=== PATIENT | female | born 1940 | race Caucasian/White ===

== ENCOUNTER 2016-09-23 12:16 | Observation (INO) ==
[2016-09-23] MEDS ORDERED: IOPAMIDOL 100 ML BOTTLE IJ ONE (12:17)
[2016-09-23] MEDS ORDERED: ONDANSETRON 4 MG/2 ML VIAL IV ONE (12:46)
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
[2016-09-23] MEDS: HYDROmorphone 2 MG/ML SYRINGE IV PRN ×4 (13:08→21:11)
[2016-09-23] MEDS: 0.9 % SODIUM CHLORIDE 1,000 ML IV SCH ×2 (13:08→18:56)
--- NOTE | 2016-09-23 13:38 | Cat Scan Report ---
History: Increasing weakness following trauma Findings: There is no intracranial hemorrhage or cerebral edema. 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 This is unchanged since 06/21/15. No recent infarct has developed. There is a 4 mm calcification in the white matter in the left cerebellar hemisphere. This is a chronic finding of undetermined etiology. There also a physiologic calcifications in the basal ganglia bilaterally and choroid plexus. There is mild generalized cerebral atrophy. The ventricles are prominent but proportionate to the atrophy. Densely calcified plaques are present in the carotid arteries and left vertebral.. Bone windows show no skull fracture. There is mucosal thickening along the [place] of several anterior ethmoid air cells bilaterally. There has been no change since 11/23/15. Impression: No acute abnormality and no change since 11/23/15. Small old infarct at the left parietal-occipital boundary Dr. Small was called with results Interpreted and Authenticated by: Erwin Das 09/23/16
[2016-09-23 13:42] LABS: Basophils # (Auto) 0 K/mcL (0.0-0.3); Basophils % (Auto) 0 % (0.0-2.0); Eosinophils # (Auto) 0 K/mcL (0.0-0.7); Eosinophils % (Auto) 0.3 % (0.0-7.0); Granulocytes % (Auto) 87.6 % (38.0-78.0); Lymphocytes # (Auto) 0.5 K/mcL (1.5-4.8); Lymphocytes % (Auto) 5.9 % (15.5-49.0); Mean Cell Volume 93.9 fL (80.0-100.0); Mean Corpuscular HGB Conc 33.2 g/dL (31.0-36.0); Mean Corpuscular Hemoglobin 31.2 pg (26.0-34.0); Monocytes # (Auto) 0.6 K/mcL (0.1-0.9); Monocytes % (Auto) 6.2 % (1.0-9.0); Platelet Count 294 K/mcL (140-440); RBC 4.83 M/mcL (4.00-5.20); Red Cell Distribution Width 15.1 % (11.5-14.5)
[2016-09-23 14:04] LABS: ALT/SGPT 20 U/l (0-40); Albumin 4.3 gm/dL (3.2-5.2); Albumin/Globulin Ratio 1.6 (1.0-2.3); Alkaline Phosphatase 54 U/L (39-117); Blood Urea Nitrogen 14 mg/dl (8-23)
[2016-09-23 14:17] LABS: Appearance,Urine CLEAR; Bilirubin,Urine NEG (NEG); Color,Urine YELLOW; Glucose,Urine (UA) NEGATIVE (NEG); Leukocyte Esterase,Urine NEG /uL (NEG); Nitrate,Urine NEG (NEG); Protein,Urine NEG (NEG); Specific Gravity,Urine 1.019 (1.000-1.035); Urine Blood NEG mg/dL (<0.03); Urobilinogen,Urine NEG (NEG)
--- NOTE | 2016-09-23 16:01 | XRay Report ---
HISTORY: Reason for Exam:confused FINDINGS: Prominent increased interstitial lung markings are present bilaterally. Much of this is pulmonary fibrosis. However, there is a mild alveolar infiltrate developing in the left lower lobe, behind the left heart border. This is new since 07/20/16. No pleural effusion is present. The lungs are hyperinflated. The heart size is normal. Spine has a kyphotic curvature. IMPRESSION: COPD with superimposed mild left lower lobe pneumonia Interpreted and Authenticated by: Erwin Das 09/23/16
[2016-09-23] MEDS ORDERED: ONDANSETRON 4 MG/2 ML VIAL ONE (16:30)
[2016-09-23] MEDS ORDERED: ONDANSETRON ODT 4 MG TABLET SL ONE (18:47)
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
[2016-09-23 21:51] LABS: C-Reactive Protein 6.2 mg/dl (0.0-0.8)
[2016-09-23] MEDS ORDERED: HYDROmorphone 2 MG/ML SYRINGE IV PRN (22:23)
[2016-09-23] MEDS ORDERED: ALPRAZolam 0.5 MG TABLET PO PRN (22:23)
[2016-09-23] MEDS ORDERED: NALOXONE HCL 0.4 MG/ML VIAL IV PRN (22:23)
[2016-09-23] MEDS ORDERED: cefTRIAXone 1 GM in DEXTROSE 5% IN WATER 50 ML IV SCH (22:23)
[2016-09-23] MEDS ORDERED: BISACODYL 5 MG TABLET PO PRN (22:23)
[2016-09-23] MEDS ORDERED: ONDANSETRON 4 MG/2 ML VIAL IV PRN (22:23)
[2016-09-23] MEDS ORDERED: PROMETHAZINE 25 MG TABLET PO PRN (22:23)
[2016-09-23] MEDS ORDERED: AZITHROMYCIN 500 MG in DEXTROSE 5% IN WATER 250 ML IV SCH (22:23)
[2016-09-23] MEDS ORDERED: MAGNESIUM HYDROXIDE 30 ML ORAL.SUSP PO PRN (22:23)
[2016-09-23] MEDS ORDERED: 0.9 % SODIUM CHLORIDE 1,000 ML IV SCH ×2 (22:23)
[2016-09-23] MEDS ORDERED: morphine 15 MG TAB.SR.12H PO PRN (22:23)
[2016-09-23] MEDS ORDERED: GABAPENTIN 300 MG CAPSULE PO SCH (22:23)
[2016-09-23] MEDS ORDERED: ACETAMINOPHEN 325 MG TABLET PO PRN (22:23)
[2016-09-23] MEDS ORDERED: IPRATROPIUM/ALBUTEROL 3 ML AMPUL.NEB NEB ONE (22:42)
[2016-09-23] MEDS: IPRATROPIUM/ALBUTEROL 3 ML AMPUL.NEB NEB SCH (22:58)
[2016-09-24] MEDS: predniSONE 20 MG TABLET PO SCH ×2 (02:08→09:13)
[2016-09-24] MEDS: FAMOTIDINE/PF 20 MG/2 ML VIAL IV SCH ×3 (02:08→19:57)
[2016-09-24 02:09] LABS: ABG Methemoglobin 0.3 % (0.4-1.5); VBG Base Excess 0.4 (-2.0-2.0); VBG HCO3 24.5 mmol/L (24.0-28.0); VBG Oxygen Saturation 92.5 % (40.0-70.0); VBG PCO2 37.8 mmHg (41.0-51.0); VBG PH 7.43 U (7.32-7.42); VBG PO2 124 mmHg (25-40); VBG Total CO2 25.7 mmol/L (25.0-29.0)
[2016-09-24] MEDS ORDERED: predniSONE 20 MG TABLET ONE (02:14)
[2016-09-24] MEDS ORDERED: cefTRIAXone 1 GM VIAL ONE (02:14)
[2016-09-24] MEDS ORDERED: AZITHROMYCIN 500 MG VIAL IV ONE (02:14)
[2016-09-24] MEDS ORDERED: FAMOTIDINE/PF 20 MG/2 ML VIAL IV ONE (02:15)
[2016-09-24 02:17] LABS: Basophils # (Auto) 0 K/mcL (0.0-0.3); Basophils % (Auto) 0.2 % (0.0-2.0); Eosinophils # (Auto) 0.1 K/mcL (0.0-0.7); Granulocytes % (Auto) 70.5 % (38.0-78.0); Lymphocytes # (Auto) 0.9 K/mcL (1.5-4.8); Lymphocytes % (Auto) 16.2 % (15.5-49.0); Mean Cell Volume 94.6 fL (80.0-100.0); Mean Corpuscular HGB Conc 32.9 g/dL (31.0-36.0); Mean Corpuscular Hemoglobin 31.2 pg (26.0-34.0); Monocytes # (Auto) 0.6 K/mcL (0.1-0.9); Monocytes % (Auto) 11.1 % (1.0-9.0); Platelet Count 241 K/mcL (140-440); RBC 4.34 M/mcL (4.00-5.20); Red Cell Distribution Width 15.1 % (11.5-14.5)
[2016-09-24] MEDS ORDERED: GABAPENTIN 300 MG CAPSULE ONE (02:17)
[2016-09-24 02:40] LABS: ALT/SGPT 15 U/l (0-40); Albumin 3.5 gm/dL (3.2-5.2); Albumin/Globulin Ratio 1.7 (1.0-2.3); Alkaline Phosphatase 43 U/L (39-117); Bilirubin,Direct < 0.2 mg/dL (0.0-0.3); Blood Urea Nitrogen 11 mg/dl (8-23); Gamma Glutamyl Transpeptidase 11 U/L (5-36); Magnesium 2.2 mg/dL (1.6-2.5); Phosphorous 2.5 mg/dL (2.7-4.5); Uric Acid 4.5 mg/dL (2.5-8.0)
[2016-09-24] MEDS: 0.9 % SODIUM CHLORIDE 1,000 ML IV SCH ×5 (02:41→14:45)
[2016-09-24] MEDS ORDERED: HYDROmorphone 2 MG/ML SYRINGE ONE (03:02)
[2016-09-24] MEDS: IPRATROPIUM/ALBUTEROL 3 ML AMPUL.NEB NEB SCH ×6 (03:16→23:34)
[2016-09-24] MEDS ORDERED: IPRATROPIUM/ALBUTEROL 3 ML AMPUL.NEB NEB ONE (03:28)
[2016-09-24] MEDS ORDERED: LEVOTHYROXINE 50 MCG TABLET PO SCH (07:30)
[2016-09-24 08:08] LABS: Amphetamine Screen,Urine NONE DETECTED (NONDETECTED); Benzodiazepines Screen,Urine NONE DETECTED (NONDETECTED); Cocaine Screen,Urine NONE DETECTED (NONDETECTED); Opiate Screen,Urine SUSPECT POSITIVE (NONDETECTED)
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
[2016-09-24] MEDS ORDERED: CLOPIDOGREL 75 MG TABLET PO SCH (09:00)
[2016-09-24] MEDS ORDERED: amLODIPine 5 MG TABLET PO SCH (09:00)
[2016-09-24] MEDS ORDERED: ISOSORBIDE MONONITRATE 30 MG TAB.XL.24H PO SCH (09:00)
[2016-09-24] MEDS ORDERED: HYDROCHLOROTHIAZIDE 12.5 MG CAPSULE PO SCH (09:00)
[2016-09-24] MEDS: GABAPENTIN 300 MG CAPSULE PO SCH ×3 (09:28→14:51)
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
[2016-09-24] MEDS ORDERED: WARFARIN 7.5 MG TABLET PO ONE ×3 (14:00→15:00)
[2016-09-24] MEDS ORDERED: MAGNESIUM HYDROXIDE 30 ML ORAL.SUSP PO PRN (14:32)
[2016-09-24] MEDS ORDERED: BISACODYL 5 MG TABLET PO PRN (14:32)
[2016-09-24] MEDS ORDERED: ONDANSETRON 4 MG/2 ML VIAL IV PRN (14:32)
[2016-09-24] MEDS ORDERED: PROMETHAZINE 25 MG TABLET PO PRN (14:32)
[2016-09-24] MEDS ORDERED: ACETAMINOPHEN 325 MG TABLET PO PRN (14:32)
[2016-09-24] MEDS ORDERED: NALOXONE HCL 0.4 MG/ML VIAL IV PRN (14:32)
[2016-09-24] MEDS ORDERED: HYDROmorphone 2 MG/ML SYRINGE IV PRN (14:32)
[2016-09-24] MEDS ORDERED: cefTRIAXone 1 GM in DEXTROSE 5% IN WATER 50 ML IV SCH (17:00)
[2016-09-24] MEDS: cefTRIAXone 1 GM in DEXTROSE 5% IN WATER 50 ML IV SCH (17:31)
[2016-09-24] MEDS ORDERED: AZITHROMYCIN 500 MG in DEXTROSE 5% IN WATER 250 ML IV SCH (18:00)
[2016-09-24] MEDS: AZITHROMYCIN 500 MG in DEXTROSE 5% IN WATER 250 ML IV SCH (18:04)
[2016-09-24] MEDS ORDERED: ALPRAZolam 0.5 MG TABLET PO PRN (21:00)
[2016-09-24] MEDS ORDERED: morphine 15 MG TAB.SR.12H PO PRN (21:00)
[2016-09-24] MEDS ORDERED: GABAPENTIN 300 MG CAPSULE PO SCH (21:00)
[2016-09-25] MEDS: 0.9 % SODIUM CHLORIDE 1,000 ML IV SCH ×2 (02:47→13:23)
[2016-09-25] MEDS: IPRATROPIUM/ALBUTEROL 3 ML AMPUL.NEB NEB SCH ×3 (04:41→11:00)
[2016-09-25] MEDS ORDERED: LEVOTHYROXINE 50 MCG TABLET PO SCH (07:30)
[2016-09-25] MEDS ORDERED: predniSONE 20 MG TABLET PO SCH (08:00)
[2016-09-25] MEDS ORDERED: HYDROCHLOROTHIAZIDE 12.5 MG CAPSULE PO SCH (09:00)
[2016-09-25] MEDS ORDERED: ISOSORBIDE MONONITRATE 30 MG TAB.XL.24H PO SCH (09:00)
[2016-09-25] MEDS ORDERED: amLODIPine 5 MG TABLET PO SCH (09:00)
[2016-09-25] MEDS ORDERED: CLOPIDOGREL 75 MG TABLET PO SCH (09:00)
[2016-09-25] MEDS: GABAPENTIN 300 MG CAPSULE PO SCH ×2 (09:30→13:27)
[2016-09-25] MEDS: FAMOTIDINE/PF 20 MG/2 ML VIAL IV SCH (09:30)
[2016-09-25] MEDS: cefTRIAXone 1 GM in DEXTROSE 5% IN WATER 50 ML IV SCH (09:32)
[2016-09-25] MEDS: AZITHROMYCIN 500 MG in DEXTROSE 5% IN WATER 250 ML IV SCH (10:17)
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
[2016-09-25] MEDS ORDERED: WARFARIN 7.5 MG TABLET PO SCH (14:00)
== END 2016-09-25 12:05 | disposition home health service (06) ==
LOC: ICU 12:16 → ED 12:16 → ICU 22:21 → MEDSUR 09-24 14:14
PROVIDERS: ADMIT Internal Medicine; ATTEND Internal Medicine

== ENCOUNTER 2018-07-17 15:57 | Inpatient (IN) ==
[2018-07-17] MEDS ORDERED: ONDANSETRON 4 MG/2 ML VIAL IV ONE (16:38)
--- NOTE | 2018-07-17 17:06 | Emergency Department Note ---
Weakness HPI - General Chief complaint: Weakness Stated complaint: diarrhea, abdominal pain, weakness Time Seen by Provider: 07/17/18 16:39 Source: patient, family Mode of arrival: wheelchair Limitations: no limitations - History of Present Illness HPI Narrative: Patient states that she has been having nausea yesterday with one episode of vomiting. Also had 2 episodes of diarrhea since then. There is been no blood in the stool. She is been feeling nauseated but there is been no abdominal pain or cramping. No hematemesis no melena. Denies any urgency frequency or dysuria. He does have a history of COPD she states that she has been having some wheezing at home with some cough although she is not wheezing at this time. She does have an inhaler that she uses. He had smoked approximately 27 years ago but has quit patient has been afebrile vital signs Temperature is 97.7 the pulse is 113 respiratory rate 20 pressure 86/56 pulse ox is 93. However in triage she did not get a blood pressure in the armthe patient refused because of the pain they normally take it down more by the wrist. We did repeat the blood pressure and it was 156/77 and was not 86/56. Patient has been more weak than normal having use a walker when she normally does not. Daughter states also that she was unable to get out of the chair because of the weakness today. - Related Data Home Medications Medication Instructions Recorded Confirmed cholecalciferol (vitamin D3) 1,000 1,000 unit PO QDAY 02/07/16 03/23/18 unit capsule magnesium 200 mg tablet 400 mg PO QDAY 02/07/16 03/23/18 omega-3 fatty acids 500 mg capsule 2,000 mg PO QDAY 02/07/16 03/23/18 vitamin B complex tablet 1 tab-cap PO QDAY 02/07/16 03/23/18 Albuterol Sulfate [Proventil Hfa] 2 puff INHALATION Q4-6HP PRN 12/10/17 03/23/18 Atorvastatin [Lipitor] 40 mg PO HS 12/10/17 03/23/18 DULoxetine HCL [Irenka] 40 mg PO QDAY 12/10/17 03/23/18 Levothyroxine Sodium [Levoxyl] 50 mcg PO QAMAC 12/10/17 03/23/18 Warfarin [Coumadin] 7.5 mg PO MOTUWETHFRSA 12/10/17 03/23/18 Hydrocodone/APAP 7.5/325Mg [Severn 1 - 2 tab PO Q4HP PRN 12/12/17 03/23/18 7.5-325Mg] Ipratropium/Albuterol [Duoneb] 3 ml INHALATION BID 12/12/17 03/23/18 Previous Rx's Medication Instructions Recorded amlodipine 5 mg tablet 5 mg PO QDAY #90 tab 08/11/17 budesonide 0.5 mg/2 mL suspension 0.5 mg INHALATION Q12H #270 ml 03/23/18 for nebulization ipratropium-albuterol 0.5 mg-3 3 ml INHALATION TID #270 ml 03/23/18 mg(2.5 mg base)/3 mL nebulization soln Allergies Allergy/AdvReac Type Severity Reaction Status Date / Time No Known Drug Allergies Allergy Verified 07/17/18 16:00 Review of Systems All systems ED: reviewed and negative except as stated. Respiratory: Reports: cough Gastrointestinal: Reports: nausea, vomiting, diarrhea Genitourinary: Reports: as per HPI. Denies: dysuria, urgency, frequency Past Medical History - Past Medical History [facility] Narrative: Family History (Last Reviewed 03/23/18 @ 10:30 by Bryon Vargas MD) Brother Family history of malignant neoplasm Mother Family history of malignant neoplasm Heart failure Sister Family history of malignant neoplasm Father Cardiac disease Medical history: Reports: COPD, coronary artery disease, hyperlipidemia, hypertension, hypothyroidism, myocardial infarction (2.), osteoporosis, pulmonary embolus, other (Chronic narcotics. 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 Denies: CVA, DM Psychiatric history: Reports: depression (History but not currently.). Denies: anxiety (Denies but previously had ensure that there was a positive.) Surgical history ED: Reports: angioplasty/stent (Single vessel coronary.), cataract (Bilateral), cholecystectomy, hysterectomy, other (cardiac stent) - Social History smoking status: Former smoker Alcohol use: Reports: None Drug use: Reports: none Physical Exam Limitations: no limitations General appearance: alert Head: atraumatic Eye: Present: normal appearance ENT: normal exam, normal oropharynx Neck: Present: normal inspection, full ROM Chest: Present: normal inspection. Absent: symmetric chest wall rise, tenderness Respiratory: Present: wheezes Cardiovascular: Present: regular rate, normal rhythm Abdominal: Present: soft, normal bowel sounds. Absent: distention, guarding, rebound, rigidity Extremities: Present: normal inspection, full ROM, tenderness Back: Present: normal inspection, full ROM. Absent: tenderness Neurological: Present: alert, oriented X3, CN II-XII intact Psychiatric: Present: normal affect, normal mood Skin: Present: warm, dry Course Vital Signs Temperature 97.7 F 07/17/18 15:58 Pulse Rate 113 H 07/17/18 15:58 Respiratory Rate 20 07/17/18 15:58 Blood Pressure 86/56 07/17/18 15:58 Pulse Oximetry (%) 93 07/17/18 15:58 Temperature 97.7 F 07/17/18 15:58 Pulse Rate 107 H 07/17/18 19:28 Respiratory Rate 22 07/17/18 19:28 Blood Pressure 135/119 07/17/18 19:16 Pulse Oximetry (%) 97 07/17/18 19:16 Weakness - MDM Narrative Medical decision making narrative: Sodium is 133 the potassium 3.8 the BUN is 14 creatinine 1.0 lactic acid is 0.6 WBC 7200 with a hemoglobin of 12.3 hematocrit 37.0 blood cultures have been drawn test was negative patient had been started on Rocephin per Dr. Norris contacted and patient to be admitted - Lab Data Result diagrams: 07/17/18 17:00 07/17/18 17:00 Lab Results 07/17/18 07/17/18 07/17/18 Range/Units 17:00 17:00 18:45 WBC 7.2 (4.5-11.0) K/mcL RBC 3.98 L (4.00-5.20) M/mcL Hgb 12.3 (12.0-15.0) g/dL Hct 37.0 (36.0-48.0) % MCV 93.0 (80.0-100.0) fL MCH 31.0 (26.0-34.0) pg MCHC 33.4 (31.0-36.0) g/dL RDW 15.7 H (11.5-14.5) % Plt Count 228 (140-440) K/mcL MPV 7.8 (7.4-10.4) fL Gran % 82.8 H (38.0-78.0) % Lymph % (Auto) 7.0 L (15.5-49.0) % [place]cer % (Auto) 9.7 (1.0-12.0) % Eos % (Auto) 0.4 (0.0-7.0) % Baso % (Auto) 0.1 (0.0-2.0) % Gran # 5.9 (1.8-8.0) K/mcL Lymph # (Auto) 0.5 L (1.5-4.8) K/mcL [place] # (Auto) 0.7 (0.1-0.9) K/mcL Eos # (Auto) 0 (0.0-0.7) K/mcL Baso # (Auto) 0 (0.0-0.3) K/mcL VBG Lactic Acid 0.6 (0.5-2.0) mmol/L Sodium 133 (133-145) mmol/L Potassium 3.8 (3.3-5.1) mmol/L Chloride 96 (96-108) mmol/L Carbon Dioxide 22 (22-30) mmol/L Anion Gap 15.0 (8-16) BUN 14 (8-23) mg/dl Creatinine 1.0 (0.6-1.1) mg/dl GFR Calculation 54 Glucose 96 (70-105) mg/dL Calcium 8.8 (8.6-10.4) mg/dl Total Bilirubin 0.5 (0.0-1.0) mg/dL AST 13 (0-37) U/l ALT 20 (0-40) U/l Alkaline Phosphatase 69 (39-117) U/L Total Protein 6.4 (5.9-8.4) gm/dL Albumin 3.8 (3.2-5.2) gm/dL Globulin 2.6 (2.2-3.7) gm/dL Albumin/Globulin Ratio 1.5 (1.0-2.3) Disposition Pt seen by PULPER TENDER/PA only: No Disposition: Xfer As Inpt ([facility]) Condition: Fair Referrals: Maritza Arredondo MD [Primary Care Provider] -
[2018-07-17] MEDS ORDERED: 0.9 % SODIUM CHLORIDE 1,000 ML IV ONE (17:11)
--- NOTE | 2018-07-17 17:48 | XRay Report ---
CLINICAL INFORMATION: hx of copd, cough COMPARISON: 09/23/2016 FINDINGS: Moderate cardiomegaly is unchanged. Mediastinum and pulmonary vessels are normal. COPD changes again noted. Small infiltrate is developed in the right infrahilar region. No effusion IMPRESSION: Small right infrahilar infiltrate. Underlying COPD Mild stable cardiomegaly Interpreted and Authenticated by: Andrew Leo 07/17/18
[2018-07-17 17:55] LABS: Basophils # (Auto) 0 K/mcL (0.0-0.3); Basophils % (Auto) 0.1 % (0.0-2.0); Eosinophils # (Auto) 0 K/mcL (0.0-0.7); Eosinophils % (Auto) 0.4 % (0.0-7.0); Granulocytes % (Auto) 82.8 % (38.0-78.0); Lymphocytes # (Auto) 0.5 K/mcL (1.5-4.8); Mean Corpuscular HGB Conc 33.4 g/dL (31.0-36.0); Monocytes # (Auto) 0.7 K/mcL (0.1-0.9); Monocytes % (Auto) 9.7 % (1.0-12.0); Platelet Count 228 K/mcL (140-440); RBC 3.98 M/mcL (4.00-5.20); Red Cell Distribution Width 15.7 % (11.5-14.5)
[2018-07-17 18:11] LABS: ALT/SGPT 20 U/l (0-40); Albumin 3.8 gm/dL (3.2-5.2); Albumin/Globulin Ratio 1.5 (1.0-2.3); Alkaline Phosphatase 69 U/L (39-117); Blood Urea Nitrogen 14 mg/dl (8-23)
[2018-07-17] MEDS ORDERED: cefTRIAXone 1 GM VIAL IV ONE (18:33)
[2018-07-17] MEDS ORDERED: IPRATROPIUM/ALBUTEROL 3 ML AMPUL.NEB NEB ONE (19:18)
[2018-07-17] MEDS ORDERED: AZITHROMYCIN 250 MG TABLET PO ONE ×2 (20:07→20:58)
[2018-07-17] MEDS ORDERED: HYDROmorphone 2 MG/ML VIAL IV PRN (20:58)
[2018-07-17] MEDS ORDERED: ONDANSETRON 4 MG/2 ML VIAL IV PRN (20:58)
[2018-07-17] MEDS ORDERED: predniSONE 20 MG TABLET PO ONE (20:58)
[2018-07-17] MEDS ORDERED: FLEETS ADULT ENEMA PR PRN (20:58)
[2018-07-17] MEDS ORDERED: ALBUTEROL SULFATE 2.5 MG/3 ML NEBULIZER NEB PRN (20:58)
[2018-07-17] MEDS ORDERED: oxyCODONE HCL 5 MG TABLET PO PRN (20:58)
--- NOTE | 2018-07-17 21:41 | Internal Med History&Physical ---
Medical - H&P: HPI Patient information: Note initiated : 07/17/18 at 9:35 pm Service Date, if different from initiated Date: [] Patient: Angy Meier a 78 y/o F admitted on 07/17/18 for diarrhea, abdominal pain, weakness. Chief Complaint: [] History of present illness: Ms. Meier is a 78 year old F with multiple medical issues presents to the ER today with complaints of weakness/cough / nausea/diarrhea x 3 days. The patient notes her symptoms started 3 days ago, she had cough with yellow sputum. Cough was associated with shortness of breath worse with activity better with rest. She also had some wheezing for which she has been taking her nebulizer treatments. Patient had subjective sensation of chills but no fever. The patient also reports symptoms started with nausea no vomiting and a few episodes of diarrhea. Patient initially felt that the symptoms were related to a viral illness and they were resolved by themselves. However her symptoms progressed and she was too weak even to get out of chair and walk short distances in her house. She therefore decided to come to the emergency room for further evaluation. The patient denies any headache changes in vision difficulty in swallowing runny nose, denies any chest pain palpitations , has some abdominal soreness, no urinary complaints, no joint pains back pain skin rashes denies depression or anxiety. Denies any blood in the stools or black stools. The patient has a history of atrial fibrillation she is on Coumadin. The patient also has history of COPD and uses nebulizers at home In the emergency room on presentation patient was afebrile, hemodynamically stable. Saturating more than 90% on room air. Labs showed normal WBC count, hemoglobin of 12, INR 3.0, lactic acid of 0.6 and an unremarkable chemistry. Chest x-ray shows a right-sided infrahilar infiltrate. Although the ED provider did not mention about any wheezing on my exam I did notice the patient did have active wheezing. Given the patient's age multiple comorbidities pneumonia and significant weakness with ambulation. We are admitting the patient to the hospital for further management All systems: reviewed and no additional remarkable complaints except as stated ( as per HPI rest negative) Medical - H&P: PMH Medical history: Medical History (Last Reviewed 03/23/18 @ 10:30 by Bryon Vargas MD) Mental status change (Acute) Atrial fibrillation with normal ventricular rate (Chronic) Encounter for wound care (Acute) Acute exacerbation of chronic obstructive airways disease (Acute) Chest pain at rest (Chronic) Myocardial infarction (Chronic) CAD in [place] artery (Chronic) Pulmonary embolism (Chronic) Chronic bronchitis with COPD (chronic obstructive pulmonary disease) (Chronic) Pneumonia (Acute) Community acquired pneumonia (Acute) F/u for acute coronary syndrome (Acute) Failed back syndrome (Chronic) Lumbar radiculopathy (Chronic) Abrasion (Acute) Urinary tract infection (Acute) Chronic SI joint pain (Chronic) Low back pain (Chronic) Minor head injury (Acute) Laceration (Acute) Visit for suture removal (Acute) Skin infection of right knee (Acute) Left leg pain (Acute) Anticoagulated on Coumadin (Acute) Bursitis of left hip (Acute) Open wound of right lower extremity (Chronic) Avulsion of skin (Chronic) Contusion (Chronic) Wound infection (Chronic) Contusion of lower leg (Chronic) History of uterine prolapse (Chronic) Venous insufficiency (Chronic) Hx of venous thrombosis and embolism (Chronic) Radiculopathy, lumbosacral or thoracic (Chronic) Hx pulmonary embolism (Chronic) Osteoporosis (Chronic) meterman current use of anticoagulant (Chronic) Insomnia (Chronic) Hypothyroidism, acquired (Chronic) Hypertension (Chronic) Hyperlipidemia (Chronic) Hammer toe, acquired (Chronic) Gastritis and gastroduodenitis (Chronic) Gastric ulcer (Chronic) Chronic back pain (Chronic) COPD (chronic obstructive pulmonary disease) (Chronic) Bowel obstruction (Chronic) Back pain (Chronic) Anxiety disorder (Chronic) Anemia (Chronic) History of coronary angiogram (Chronic 01/17/16) Surgical history: Past Surgical History (Last Reviewed 03/23/18 @ 10:30 by Bryon Vargas MD) History of skin graft (Chronic) History of reduction mammoplasty (Chronic) History of hysterectomy (Chronic) History of hammer toe correction (Chronic) History of esophagogastroduodenoscopy (Chronic) History of cholecystectomy (Chronic) History of foot surgery (Chronic) History of intestinal surgery (Chronic) History of back surgery (Chronic) History of arthroplasty (Chronic) Pertinent family history: Family History (Last Reviewed 03/23/18 @ 10:30 by Bryon Vargas MD) Brother Family history of malignant neoplasm Mother Family history of malignant neoplasm Heart failure Sister Family history of malignant neoplasm Father Cardiac disease Medical - H&P: Meds Home Medications Medication Instructions Recorded Confirmed Type cholecalciferol (vitamin D3) 1,000 1,000 unit PO QDAY 02/07/16 07/17/18 History unit capsule omega-3 fatty acids 500 mg capsule 2,000 mg PO QDAY 02/07/16 07/17/18 History vitamin B complex tablet 1 tab-cap PO QDAY 02/07/16 07/17/18 History amlodipine 5 mg tablet 5 mg PO QDAY #90 tab 08/11/17 07/17/18 Rx Albuterol Sulfate [Proventil Hfa] 2 puff INHALATION Q4-6HP PRN 12/10/17 History Atorvastatin [Lipitor] 40 mg PO HS 12/10/17 07/17/18 History DULoxetine HCL [Irenka] 40 mg PO QDAY 12/10/17 07/17/18 History Levothyroxine Sodium [Levoxyl] 50 mcg PO QAMAC 12/10/17 07/17/18 History Warfarin [Coumadin] 7.5 mg PO [id number] 12/10/17 07/17/18 History Ipratropium/Albuterol [Duoneb] 3 ml INHALATION BID 12/12/17 07/17/18 History budesonide 0.5 mg/2 mL suspension 0.5 mg INHALATION Q12H #270 ml 03/23/18 Rx for nebulization ipratropium-albuterol 0.5 mg-3 3 ml INHALATION TID #270 ml 03/23/18 07/17/18 Rx mg(2.5 mg base)/3 mL nebulization soln Allergies Allergy/AdvReac Type Severity Reaction Status Date / Time No Known Drug Allergies Allergy Verified 07/17/18 16:00 Medical - H&P: Exam - Constitutional Vitals: Temp Pulse Resp BP Pulse Ox 98.8 F 95 H 20 124/66 94 07/17/18 20:57 07/17/18 21:08 07/17/18 21:08 07/17/18 21:08 07/17/18 21:08 Exam: GENERAL: The patient is a well-developed, well-nourished in no apparent distress. Is alert and oriented x3. VITAL SIGNS: Reviewed and as noted elsewhere. HEENT: Head is normocephalic and atraumatic. Extraocular muscles are intact. Pupils are equal, round, and reactive to light. Nares appeared normal. Mouth appears any without lesions. Mucous membranes are dry. NECK: Normal to inspection, Supple, No lymphadenopathy or thyromegaly. LUNGS: Air entry equal on both sides, tori exp wheezing, prolonged exp phase. HEART: Regular rate and rhythm irregular , S1 and S2 heard, no Gallop, S3 or Rub Noted. Systolic murmur 3/6 ABDOMEN: Soft, nontender, and nondistended. Positive bowel sounds. No hepatosplenomegaly was noted. EXTREMITIES: No cyanosis, clubbing, rash, lesions or edema. NEUROLOGIC: Cranial nerves II through XII are grossly intact. Motor and Sensory System Grossly Intact PSYCHIATRIC: Normal affect, Normal Mood. Appropriate Behavior. SKIN: No ulceration or wounds noted, No jaundice, No rash noted. Medical - H&P: Reslt - Labs CBC & Chem 7: 07/17/18 17:00 07/17/18 17:00 Labs: Short CBC 07/17/18 Range/Units 17:00 WBC 7.2 (4.5-11.0) K/mcL Hgb 12.3 (12.0-15.0) g/dL Hct 37.0 (36.0-48.0) % Plt Count 228 (140-440) K/mcL BMP 07/17/18 17:00 Sodium 133 Potassium 3.8 Chloride 96 Carbon Dioxide 22 BUN 14 Creatinine 1.0 Glucose 96 Calcium 8.8 Liver Function 07/17/18 Range/Units 17:00 Total Bilirubin 0.5 (0.0-1.0) mg/dL AST 13 (0-37) U/l ALT 20 (0-40) U/l Alkaline Phosphatase 69 (39-117) U/L Albumin 3.8 (3.2-5.2) gm/dL Medical - H&P: A/P - Narrative A/P Narrative: A/P Community Acquired Pneumonia- IV Rocephin and zithromax for now, Check respiratory viral PCR Acute COPD exacerbation- PO steroids, Duonebs q4h, budesonide nebs, not needing oxygen at this time. Nausea- Symptomatic management Diarrhea- Few episodes of loose stools, if recurs, consider checking for Cdiff Atrial fibrillation- Rate controlled, pt on coumadin, last INR is 3.0 continue same CAD/HTN/HLD- Stable, continue home medications. Dehydration- Patient appears dry clinicall, IV fluids for now. Hypothyroidism- stable, continue home dose of levothyroxine. DVT on coumadin with therapeutic INR. DNR code status Regular diet Social History - Social History marital status: occupational status: retired - Tobacco smoking status: Former smoker - Alcohol alcohol intake frequency: does not drink - Substance use substance use type: marijuana - Additional Social History additional history: Drinks liquid marijuana to help with pain. Gets from a private libertarian.
[2018-07-17] MEDS ORDERED: LACTATED RINGERS 1,000 ML IV SCH (22:00)
[2018-07-17] MEDS: BUDESONIDE 0.5 MG/2 ML AMPUL.NEB NEB SCH (22:12)
[2018-07-17] MEDS: IPRATROPIUM/ALBUTEROL 3 ML AMPUL.NEB NEB SCH (22:12)
[2018-07-17] MEDS: 0.9 % SODIUM CHLORIDE 10 ML SYRINGE IV SCH (22:57)
[2018-07-18] MEDS ORDERED: IPRATROPIUM/ALBUTEROL 3 ML AMPUL.NEB NEB SCH (01:00)
[2018-07-18] MEDS: ACETAMINOPHEN 325 MG TABLET PO PRN (01:08)
[2018-07-18] MEDS: IPRATROPIUM/ALBUTEROL 3 ML AMPUL.NEB NEB SCH ×6 (03:41→23:02)
[2018-07-18 05:25] LABS: Basophils # (Auto) 0 K/mcL (0.0-0.3); Basophils % (Auto) 0.1 % (0.0-2.0); Eosinophils # (Auto) 0 K/mcL (0.0-0.7); Eosinophils % (Auto) 0.1 % (0.0-7.0); Granulocytes % (Auto) 89.7 % (38.0-78.0); Lymphocytes # (Auto) 0.5 K/mcL (1.5-4.8); Lymphocytes % (Auto) 7.6 % (15.5-49.0); Mean Cell Volume 93.4 fL (80.0-100.0); Mean Corpuscular HGB Conc 33.3 g/dL (31.0-36.0); Mean Corpuscular Hemoglobin 31.1 pg (26.0-34.0); Monocytes # (Auto) 0.2 K/mcL (0.1-0.9); Monocytes % (Auto) 2.5 % (1.0-12.0); Platelet Count 197 K/mcL (140-440); RBC 3.72 M/mcL (4.00-5.20); Red Cell Distribution Width 15.3 % (11.5-14.5)
[2018-07-18] MEDS: 0.9 % SODIUM CHLORIDE 10 ML SYRINGE IV SCH ×3 (05:30→20:25)
[2018-07-18 05:50] LABS: ALT/SGPT 16 U/l (0-40); Albumin 3.1 gm/dL (3.2-5.2); Albumin/Globulin Ratio 1.2 (1.0-2.3); Alkaline Phosphatase 73 U/L (39-117); Bilirubin,Direct < 0.2 mg/dL (0.0-0.3); Blood Urea Nitrogen 13 mg/dl (8-23); Gamma Glutamyl Transpeptidase 14 U/L (5-36); Uric Acid 3.5 mg/dL (2.5-8.0)
[2018-07-18] MEDS ORDERED: IPRATROPIUM/ALBUTEROL 3 ML AMPUL.NEB NEB ONE (07:19)
[2018-07-18] MEDS: BUDESONIDE 0.5 MG/2 ML AMPUL.NEB NEB SCH ×3 (07:54→19:23)
[2018-07-18] MEDS: predniSONE 20 MG TABLET PO SCH (08:31)
[2018-07-18] MEDS: LEVOTHYROXINE 50 MCG TABLET PO SCH (08:31)
[2018-07-18] MEDS ORDERED: cefTRIAXone 1 GM in DEXTROSE 5% IN WATER 50 ML IV SCH (09:00)
[2018-07-18] MEDS: VITAMIN D3 1,000 UNIT TABLET PO SCH (09:54)
[2018-07-18] MEDS: amLODIPine 5 MG TABLET PO SCH (09:54)
[2018-07-18] MEDS: DULoxetine 20 MG CAPSULE PO SCH (10:54)
--- NOTE | 2018-07-18 13:06 | Internal Med Progress Note ---
Medical - PN: Subj Patient information: Note initiated : 07/18/18 at 1:04 pm Service Date, if different from initiated Date: [] Patient: Angy Meier a 78 y/o F admitted on 07/17/18 for diarrhea, abdominal pain, weakness. Chief Complaint: [] Interval history: Ms. Meier is a 78 year old F with multiple medical issues presents to the ER today with complaints of weakness/cough / nausea/diarrhea x 3 days. The patient notes her symptoms started 3 days ago, she had cough with yellow sputum. Cough was associated with shortness of breath worse with activity better with rest. She also had some wheezing for which she has been taking her nebulizer treatments. Patient had subjective sensation of chills but no fever. The patient also reports symptoms started with nausea no vomiting and a few episodes of diarrhea. Patient initially felt that the symptoms were related to a viral illness and they were resolved by themselves. However her symptoms progressed and she was too weak even to get out of chair and walk short distances in her house. She therefore decided to come to the emergency room for further evaluation. The patient denies any headache changes in vision difficulty in swallowing runny nose, denies any chest pain palpitations , has some abdominal soreness, no urinary complaints, no joint pains back pain skin rashes denies depression or anxiety. Denies any blood in the stools or black stools. The patient has a history of atrial fibrillation she is on Coumadin. The patient also has history of COPD and uses nebulizers at home In the emergency room on presentation patient was afebrile, hemodynamically stable. Saturating more than 90% on room air. Labs showed normal WBC count, hemoglobin of 12, INR 3.0, lactic acid of 0.6 and an unremarkable chemistry. Chest x-ray shows a right-sided infrahilar infiltrate. Although the ED provider did not mention about any wheezing on my exam I did notice the patient did have active wheezing. Given the patient's age multiple comorbidities pneumonia and significant weakness with ambulation. We are admitting the patient to the hospital for further management 07/18 Patient seen and examined, still has some cough, wanting cough medication otherwise was comfortably sitting in chair. She had breakfast without any issues. Pertinent ROS: Denies headache, dizziness Denies chest pain, palpitations Cough and shortness of breath present improved Denies abdominal pain, nausea or vomiting. - Constitutional Vitals: Vital Signs Temp Pulse Resp BP Pulse Ox 98.4 F 97 H 16 157/87 95 07/18/18 12:00 07/18/18 12:33 07/18/18 12:33 07/18/18 12:00 07/18/18 12:00 Period Temp Pulse Resp BP Sys/Ramirez Pulse Ox Last 24 Hr 97.5 F-99.6 F 83-113 16-30 86-166/56-141 91-97 Intake and Output 07/17/18 07/18/18 07/18/18 22:59 05:59 13:59 Intake Total Output Total 250 / 250 Balance -250 / -250 Weight Intake & Output: Intake & Output 07/17/18 07/18/18 07/18/18 22:59 05:59 13:59 Intake Total Output Total 250 / 250 Balance -250 / -250 Weight Intake: IV Sodium Chloride 0.9% 1,000 ml @ Wide Open IV BOLUS ONE Rx#: [id number] Lactated Ringers 1,000 ml @ 125 mls/hr IV .Q8H [facility] Rx#: [id number] Oral Output: Void Amount 250 / 250 # of times incontinent of urine 0 / 0 Other: Urine Appearance Clear Urine Color Bright Yellow Urine Odor Normal # Voids 1 Exam: Constitutional; Afebrile, cooperative, alert, not in distress. Eyes- No icterus, , No periorbital swelling Ears- Ext ear normal, hearing normal to conversation. Neck- Midline trachea, supple Respiratory system: Air Entry equal on both sides, prolonged expiratory phase, bilateral expiratory wheezing CVS- Rate rhythm regular, S1,S2 heard, no gallop, no rub. Abdomen- Soft nontender abdomen, no organomegaly, no tenderness, no guarding or rigidity, ANESTHESIOLOGIST ATTENDING- AOOx3, moving all extremities, no gross focal deficit noted. Medical - PN: Obj Da - Labs CBC & Chem 7: 07/18/18 04:10 07/18/18 04:00 Labs: Abnormal Lab Results 07/18/18 07/18/18 07/18/18 04:10 04:10 04:00 RBC 3.72 L Hgb 11.6 L Hct 34.8 L RDW 15.3 H Gran % 89.7 H Lymph % (Auto) 7.6 L Lymph # (Auto) 0.5 L PT 31.9 H INR 3.0 H Carbon Dioxide 20 L Glucose 140 H Calcium 8.3 L Total Protein 5.7 L Albumin 3.1 L 07/17/18 07/17/18 17:00 17:00 RBC 3.98 L Hgb Hct RDW 15.7 H Gran % 82.8 H Lymph % (Auto) 7.0 L Lymph # (Auto) 0.5 L PT 31.3 H INR 3.0 H Carbon Dioxide Glucose Calcium Total Protein Albumin Meds: Medications Acetaminophen (Tylenol) 650 mg PO Q6HP PRN PRN Reason: PAIN/FEVER > 101 Last Admin: 07/18/18 01:08 PDT Dose: 650 mg Albuterol Sulfate (Ventolin) 2.5 mg NEB Q2HP PRN PRN Reason: Shortness Of Breath Last Admin: 07/18/18 03:37 Dose: 2.5 mg Albuterol/Ipratropium (Duoneb) 3 ml NEB Q4HRT [facility] Last Admin: 07/18/18 12:33 Dose: 3 ml Amlodipine Besylate (Norvasc) 5 mg PO QDAY [facility] Last Admin: 07/18/18 09:54 Dose: 5 mg Atorvastatin Calcium (Lipitor) 40 mg PO HS [facility] Azithromycin (Zithromax) 250 mg PO DAILY [facility] Stop: 07/21/18 09:01 Budesonide (Pulmicort) 0.5 mg NEB Q12H [facility] Last Admin: 07/18/18 07:54 Dose: 0.5 mg Ceftriaxone Sodium (Rocephin) 1 gm IV DAILY [facility] Duloxetine HCl (Cymbalta) 40 mg PO DAILY [facility] Last Admin: 07/18/18 10:54 Dose: 40 mg Guaifenesin (Robitussin Dm) 10 ml PO Q4HP PRN PRN Reason: Cough Hydromorphone HCl (Dilaudid) 0.5 mg IV Q2HP PRN PRN Reason: PAIN LEVEL > 6 Levothyroxine Sodium (Synthroid) 50 mcg PO QAMAC [facility] Last Admin: 07/18/18 08:31 Dose: 50 mcg Ondansetron HCl (Zofran) 4 mg IV Q6HP PRN PRN Reason: Nausea And Vomiting Last Admin: 07/17/18 23:30 Dose: 4 mg Oxycodone HCl (Roxicodone) 5 mg PO Q4HP PRN PRN Reason: PAIN LEVEL 3-6 Prednisone (Prednisone) 40 mg PO [facility] Last Admin: 07/18/18 08:31 Dose: 40 mg Sodium Biphosphate/Sodium Phosphate (Fleets Adult) 1 dose [place] Q3-4DAYS PRN PRN Reason: Constipation Sodium Chloride (Saline Flush) 10 ml IV Q8 [facility] Last Admin: 07/18/18 05:30 Dose: Not Given Vitamin D (Vitamin D3) 1,000 unit PO DAILY [facility] Last Admin: 07/18/18 09:54 Dose: 1,000 unit Warfarin Sodium (Coumadin Per Pharmacy) 1 order PO UD [facility] Medical - PN: A/P - Time Spent With Patient Total time spent is greater than 50% in coordination of care (as documented) at patient's floor/unit and/or counseling patient: - Narrative A/P Narrative: A/P Community Acquired Pneumonia- IV Rocephin and zithromax for now, Pt has a negative respiratory viral PCR Acute COPD exacerbation- PO steroids, Duonebs q4h, budesonide nebs, not needing oxygen at this time. Nausea- Symptomatic management Diarrhea- Few episodes of loose stools, if recurs, consider checking for Cdiff Atrial fibrillation- Rate controlled, pt on coumadin, last INR is 3.0 continue same, dosing per pharmacy for coumadin. CAD/HTN/HLD- Stable, continue home medications. Dehydration-much better today. Hypothyroidism- stable, continue home dose of levothyroxine. DVT on coumadin with therapeutic INR. DNR code status Regular diet
[2018-07-18] MEDS: cefTRIAXone 1 GM VIAL IV SCH (13:49)
[2018-07-18] MEDS: AZITHROMYCIN 250 MG TABLET PO SCH (13:49)
[2018-07-18] MEDS ORDERED: VANCOMYCIN 1,000 MG in 0.9 % SODIUM CHLORIDE 250 ML IV ONE (18:47)
[2018-07-18] MEDS ORDERED: VANCOMYCIN PER PHARMACY IV ONE (18:47)
[2018-07-18] MEDS: ATORVASTATIN 20 MG TABLET PO SCH (20:25)
[2018-07-18] MEDS: MELATONIN 3 MG TABLET PO PRN (20:38)
[2018-07-19] MEDS: IPRATROPIUM/ALBUTEROL 3 ML AMPUL.NEB NEB SCH ×6 (03:15→23:28)
[2018-07-19] MEDS: 0.9 % SODIUM CHLORIDE 10 ML SYRINGE IV SCH ×3 (04:54→23:32)
[2018-07-19 06:28] LABS: Basophils # (Auto) 0 K/mcL (0.0-0.3); Basophils % (Auto) 0.1 % (0.0-2.0); Eosinophils # (Auto) 0 K/mcL (0.0-0.7); Eosinophils % (Auto) 0.6 % (0.0-7.0); Lymphocytes # (Auto) 0.9 K/mcL (1.5-4.8); Lymphocytes % (Auto) 15.4 % (15.5-49.0); Mean Cell Volume 93.9 fL (80.0-100.0); Mean Corpuscular HGB Conc 33.5 g/dL (31.0-36.0); Mean Corpuscular Hemoglobin 31.5 pg (26.0-34.0); Monocytes # (Auto) 0.5 K/mcL (0.1-0.9); Monocytes % (Auto) 8.9 % (1.0-12.0); Platelet Count 222 K/mcL (140-440); RBC 3.34 M/mcL (4.00-5.20); Red Cell Distribution Width 15.8 % (11.5-14.5)
[2018-07-19 06:58] LABS: ALT/SGPT 14 U/l (0-40); Albumin 3.1 gm/dL (3.2-5.2); Albumin/Globulin Ratio 1.4 (1.0-2.3); Alkaline Phosphatase 58 U/L (39-117); Bilirubin,Direct < 0.2 mg/dL (0.0-0.3); Blood Urea Nitrogen 19 mg/dl (8-23); Gamma Glutamyl Transpeptidase 10 U/L (5-36); Uric Acid 3.9 mg/dL (2.5-8.0)
[2018-07-19] MEDS ORDERED: VANCOMYCIN PER PHARMACY IV SCH (07:15)
[2018-07-19] MEDS: BUDESONIDE 0.5 MG/2 ML AMPUL.NEB NEB SCH ×2 (07:37→19:26)
[2018-07-19] MEDS: LEVOTHYROXINE 50 MCG TABLET PO SCH (07:52)
[2018-07-19] MEDS: ACETAMINOPHEN 325 MG TABLET PO PRN (07:52)
[2018-07-19] MEDS: DULoxetine 20 MG CAPSULE PO SCH (10:08)
[2018-07-19] MEDS: cefTRIAXone 1 GM VIAL IV SCH (10:08)
[2018-07-19] MEDS: VITAMIN D3 1,000 UNIT TABLET PO SCH (10:09)
[2018-07-19] MEDS: AZITHROMYCIN 250 MG TABLET PO SCH (10:09)
[2018-07-19] MEDS: amLODIPine 5 MG TABLET PO SCH (10:09)
[2018-07-19] MEDS: predniSONE 20 MG TABLET PO SCH (10:09)
[2018-07-19] MEDS ORDERED: WARFARIN 7.5 MG TABLET PO ONE (14:00)
[2018-07-19] MEDS: VANCOMYCIN 1,000 MG in 0.9 % SODIUM CHLORIDE 250 ML IV SCH (14:28)
--- NOTE | 2018-07-19 16:23 | Internal Med Progress Note ---
Medical - PN: Subj Patient information: Note initiated : 07/19/18 at 4:21 pm Service Date, if different from initiated Date: [] Patient: Angy Meier a 78 y/o F admitted on 07/17/18 for Diarrhea, Abdominal Pain, Weakness/Pneumonia. Chief Complaint: [] Interval history: Ms. Meier is a 78 year old F with multiple medical issues presents to the ER today with complaints of weakness/cough / nausea/diarrhea x 3 days. The patient notes her symptoms started 3 days ago, she had cough with yellow sputum. Cough was associated with shortness of breath worse with activity better with rest. She also had some wheezing for which she has been taking her nebulizer treatments. Patient had subjective sensation of chills but no fever. The patient also reports symptoms started with nausea no vomiting and a few episodes of diarrhea. Patient initially felt that the symptoms were related to a viral illness and they were resolved by themselves. However her symptoms progressed and she was too weak even to get out of chair and walk short distances in her house. She therefore decided to come to the emergency room for further evaluation. The patient denies any headache changes in vision difficulty in swallowing runny nose, denies any chest pain palpitations , has some abdominal soreness, no urinary complaints, no joint pains back pain skin rashes denies depression or anxiety. Denies any blood in the stools or black stools. The patient has a history of atrial fibrillation she is on Coumadin. The patient also has history of COPD and uses nebulizers at home In the emergency room on presentation patient was afebrile, hemodynamically stable. Saturating more than 90% on room air. Labs showed normal WBC count, hemoglobin of 12, INR 3.0, lactic acid of 0.6 and an unremarkable chemistry. Chest x-ray shows a right-sided infrahilar infiltrate. Although the ED provider did not mention about any wheezing on my exam I did notice the patient did have active wheezing. Given the patient's age multiple comorbidities pneumonia and significant weakness with ambulation. We are admitting the patient to the hospital for further management 07/18 Patient seen and examined, still has some cough, wanting cough medication otherwise was comfortably sitting in chair. She had breakfast without any issues. 07/19 pt seen examined, no acute overnight issues, tolerating po diet well, Blood culture positive for staph epidermis, likely contaminant, on vancomycin. Repeat culture neg Patient otherwise is doing well. Pertinent ROS: Denies headache, dizziness Denies chest pain, palpitations Denies cough or shortness of breath Denies abdominal pain, nausea or vomiting. - Constitutional Vitals: Vital Signs Temp Pulse Resp BP Pulse Ox 99 F 97 H 20 136/75 91 07/19/18 15:59 07/19/18 12:16 07/19/18 15:59 07/19/18 15:59 07/19/18 15:59 Period Temp Pulse Resp BP Sys/Ramirez Pulse Ox Last 24 Hr 98.7 F-99.5 F 68-97 16-20 129-187/62-82 90-96 Intake and Output 07/19/18 07/19/18 07/19/18 05:59 13:59 21:59 Intake Total 100 / 100 650 / 650 Output Total 300 / 300 Balance -200 / -200 650 / 650 Weight 169 lb 8 oz Patient Weight 07/20/18 05:59 Weight 169 lb 8 oz Intake & Output: Intake & Output 07/19/18 07/19/18 07/19/18 05:59 13:59 21:59 Intake Total 100 / 100 650 / 650 Output Total 300 / 300 Balance -200 / -200 650 / 650 Weight 169 lb 8 oz Intake: Oral 100 / 100 650 / 650 Output: Void Amount 300 / 300 Other: Urine Appearance Clear Urine Color Bright Yellow Urine Odor Normal Stool Color Brown Stool Consistency Loose # Voids 1 # Bowel Movements 1 Exam: Constitutional; Afebrile, cooperative, alert, not in distress. Eyes- No icterus, , No periorbital swelling Ears- Ext ear normal, hearing normal to conversation. Neck- Midline trachea, supple Respiratory system: Air Entry equal on both sides, No crackles or wheezing, no rhonchi. CVS- Rate rhythm regular, S1,S2 heard, no gallop, no rub. Abdomen- Soft nontender abdomen, no organomegaly, no tenderness, no guarding or rigidity, [employer]- AOOx3, moving all extremities, no gross focal deficit noted. Medical - PN: Obj Da - Labs CBC & Chem 7: 07/19/18 04:05 07/19/18 04:05 Labs: Abnormal Lab Results 07/19/18 07/19/18 07/19/18 04:05 04:05 04:05 RBC 3.34 L Hgb 10.5 L Hct 31.4 L RDW 15.8 H Gran % Lymph % (Auto) 15.4 L Lymph # (Auto) 0.9 L PT 24.9 H INR 2.2 H Carbon Dioxide Glucose Calcium 8.3 L Total Protein 5.3 L Albumin 3.1 L 07/18/18 07/18/18 07/18/18 04:10 04:10 04:00 RBC 3.72 L Hgb 11.6 L Hct 34.8 L RDW 15.3 H Gran % 89.7 H Lymph % (Auto) 7.6 L Lymph # (Auto) 0.5 L PT 31.9 H INR 3.0 H Carbon Dioxide 20 L Glucose 140 H Calcium 8.3 L Total Protein 5.7 L Albumin 3.1 L 07/17/18 07/17/18 17:00 17:00 RBC 3.98 L Hgb Hct RDW 15.7 H Gran % 82.8 H Lymph % (Auto) 7.0 L Lymph # (Auto) 0.5 L PT 31.3 H INR 3.0 H Carbon Dioxide Glucose Calcium Total Protein Albumin Meds: Medications Acetaminophen (Tylenol) 650 mg PO Q6HP PRN PRN Reason: PAIN/FEVER > 101 Last Admin: 07/19/18 07:52 Dose: 650 mg Albuterol Sulfate (Ventolin) 2.5 mg NEB Q2HP PRN PRN Reason: Shortness Of Breath Last Admin: 07/18/18 03:37 Dose: 2.5 mg Albuterol/Ipratropium (Duoneb) 3 ml NEB Q4HRT [facility] Last Admin: 07/19/18 16:11 Dose: 3 ml Amlodipine Besylate (Norvasc) 5 mg PO QDAY [facility] Last Admin: 07/19/18 10:09 Dose: 5 mg Atorvastatin Calcium (Lipitor) 40 mg PO HS [facility] Last Admin: 07/18/18 20:25 Dose: 40 mg Azithromycin (Zithromax) 250 mg PO DAILY [facility] Stop: 07/21/18 09:01 Last Admin: 07/19/18 10:09 Dose: 250 mg Budesonide (Pulmicort) 0.5 mg NEB Q12H [facility] Last Admin: 07/19/18 07:37 Dose: 0.5 mg Ceftriaxone Sodium (Rocephin) 1 gm IV DAILY [facility] Last Admin: 07/19/18 10:08 Dose: 1 gm Duloxetine HCl (Cymbalta) 40 mg PO DAILY [facility] Last Admin: 07/19/18 10:08 Dose: 40 mg Guaifenesin (Robitussin Dm) 10 ml PO Q4HP PRN PRN Reason: Cough Hydromorphone HCl (Dilaudid) 0.5 mg IV Q2HP PRN PRN Reason: PAIN LEVEL > 6 Vancomycin HCl 1,000 mg/ (Sodium Chloride) 250 mls @ 250 mls/hr IV DAILY [facility] Last Admin: 07/19/18 14:28 Dose: 150 mls/hr Levothyroxine Sodium (Synthroid) 50 mcg PO QAMAC [facility] Last Admin: 07/19/18 07:52 Dose: 50 mcg Melatonin (Melatonin 3mg Tablet) 3 mg PO HSP PRN PRN Reason: sleep aid Last Admin: 07/18/18 20:38 Dose: 3 mg Ondansetron HCl (Zofran) 4 mg IV Q6HP PRN PRN Reason: Nausea And Vomiting Last Admin: 07/17/18 23:30 Dose: 4 mg Oxycodone HCl (Roxicodone) 5 mg PO Q4HP PRN PRN Reason: PAIN LEVEL 3-6 Prednisone (Prednisone) 40 mg PO [facility] Last Admin: 07/19/18 10:09 Dose: 40 mg Sodium Biphosphate/Sodium Phosphate (Fleets Adult) 1 dose IN Q3-4DAYS PRN PRN Reason: Constipation Sodium Chloride (Saline Flush) 10 ml IV Q8 [facility] Last Admin: 07/19/18 14:28 Dose: 10 ml Vancomycin HCl (Vancomycin Per Pharmacy) 1 order IV [facility] Vitamin D (Vitamin D3) 1,000 unit PO DAILY [facility] Last Admin: 07/19/18 10:09 Dose: 1,000 unit Warfarin Sodium (Coumadin Per Pharmacy) 1 order PO [facility] Medical - PN: A/P - Time Spent With Patient Total time spent is greater than 50% in coordination of care (as documented) at patient's floor/unit and/or counseling patient: - Narrative A/P Narrative: A/P Community Acquired Pneumonia- IV Rocephin and zithromax for now, Pt has a negative respiratory viral PCR Acute COPD exacerbation- PO steroids, Duonebs q4h, budesonide nebs, not needing oxygen at this time. Much improved, no wheezing on exam Nausea- Symptomatic management, able to tolerate po diet well Gram positive Bactermia_ likely contaminant, on vanco, repeat cultures neg so far, Diarrhea- Few episodes of loose stools, if recurs, consider checking for Cdiff Atrial fibrillation- Rate controlled, pt on coumadin, last INR is 3.0 continue same, dosing per pharmacy for coumadin. CAD/HTN/HLD- Stable, continue home medications. Dehydration-much better today. Hypothyroidism- stable, continue home dose of levothyroxine. DVT on coumadin with therapeutic INR. DNR code status Regular diet
[2018-07-19] MEDS: guaiFENesin/DEXTROMETHORPHAN ORAL SOL PO PRN (18:03)
[2018-07-19] MEDS: ATORVASTATIN 20 MG TABLET PO SCH (20:05)
[2018-07-19] MEDS: MELATONIN 3 MG TABLET PO PRN (20:05)
[2018-07-20] MEDS: IPRATROPIUM/ALBUTEROL 3 ML AMPUL.NEB NEB SCH ×2 (03:52→07:11)
[2018-07-20 05:39] LABS: Basophils # (Auto) 0 K/mcL (0.0-0.3); Basophils % (Auto) 0 % (0.0-2.0); Eosinophils # (Auto) 0 K/mcL (0.0-0.7); Eosinophils % (Auto) 0 % (0.0-7.0); Granulocytes % (Auto) 77.8 % (38.0-78.0); Lymphocytes # (Auto) 0.8 K/mcL (1.5-4.8); Lymphocytes % (Auto) 13.2 % (15.5-49.0); Mean Cell Volume 93.6 fL (80.0-100.0); Mean Corpuscular HGB Conc 33.5 g/dL (31.0-36.0); Mean Corpuscular Hemoglobin 31.3 pg (26.0-34.0); Monocytes # (Auto) 0.5 K/mcL (0.1-0.9); Platelet Count 240 K/mcL (140-440); RBC 3.48 M/mcL (4.00-5.20); Red Cell Distribution Width 15.5 % (11.5-14.5)
[2018-07-20] MEDS: 0.9 % SODIUM CHLORIDE 10 ML SYRINGE IV SCH (06:00)
[2018-07-20 06:05] LABS: ALT/SGPT 16 U/l (0-40); Albumin 3.2 gm/dL (3.2-5.2); Albumin/Globulin Ratio 1.5 (1.0-2.3); Alkaline Phosphatase 62 U/L (39-117); Bilirubin,Direct < 0.2 mg/dL (0.0-0.3); Blood Urea Nitrogen 15 mg/dl (8-23); Gamma Glutamyl Transpeptidase 13 U/L (5-36); Uric Acid 3.6 mg/dL (2.5-8.0)
[2018-07-20] MEDS: BUDESONIDE 0.5 MG/2 ML AMPUL.NEB NEB SCH (07:11)
[2018-07-20] MEDS: guaiFENesin/DEXTROMETHORPHAN ORAL SOL PO PRN (08:04)
[2018-07-20] MEDS: cefTRIAXone 1 GM VIAL IV SCH (08:04)
[2018-07-20] MEDS: DULoxetine 20 MG CAPSULE PO SCH (08:04)
[2018-07-20] MEDS: VITAMIN D3 1,000 UNIT TABLET PO SCH (08:05)
[2018-07-20] MEDS: LEVOTHYROXINE 50 MCG TABLET PO SCH (08:05)
[2018-07-20] MEDS: predniSONE 20 MG TABLET PO SCH (08:05)
[2018-07-20] MEDS: ACETAMINOPHEN 325 MG TABLET PO PRN (08:05)
[2018-07-20] MEDS: AZITHROMYCIN 250 MG TABLET PO SCH (08:05)
[2018-07-20] MEDS: amLODIPine 5 MG TABLET PO SCH (08:05)
--- NOTE | 2018-07-20 09:29 | Discharge Summary ---
Medical - DS: Prov Patient information: Note initiated : 07/20/18 at 9:25 am Service Date, if different from initiated Date: [] Patient: Angy Meier 78 y/o F admitted on 07/17/18 for Diarrhea, Abdominal Pain, Weakness/Pneumonia. Date of admission: 07/17/18 20:39 Discharge date: 07/20/18 Primary care physician: Maritza Arredondo Admitting clinician: Becki Norris Consults: 07/17/18 Consult to Physician [CONS] Stat Comment: Consulting Provider: Becki Norris Reason For Exam: Physician to Consult Discharging clinician: Ani Cortes Medical - DS: Meds - Discharge Medications Prescriptions: Azithromycin [Zithromax] 250 mg PO DAILY #2 tab predniSONE [Prednisone] [facility] tab Active and Home Medications: Home Medications cholecalciferol (vitamin D3) 1,000 unit capsule 5,000 unit PO QDAY 02/07/16 [ History Confirmed 07/18/18 Last Taken 07/16/18 09:00] omega-3 fatty acids 500 mg capsule 2,000 mg PO QDAY 02/07/16 [History Confirmed 07/17/18 Last Taken 07/16/18 09:00] vitamin B complex tablet 1 tab-cap PO QDAY 02/07/16 [History Confirmed 07/17/18 Last Taken 07/16/18 09:00] amlodipine 5 mg tablet 5 mg PO QDAY #90 tab 08/11/17 [Rx Confirmed 07/17/18 Last Taken 07/16/18 10:00] Albuterol Sulfate [Proventil Hfa] 2 puff INHALATION Q4-6HP PRN 12/10/17 [ History Confirmed 07/17/18 Last Taken 07/17/18 12:00] Atorvastatin [Lipitor] 40 mg PO HS 12/10/17 [History Confirmed 07/17/18 Last Taken 07/16/18 20:00] DULoxetine HCL [Irenka] 40 mg PO QDAY 12/10/17 [History Confirmed 07/17/18 Last Taken 07/16/18 09:00] Levothyroxine Sodium [Levoxyl] 50 mcg PO QAMAC 12/10/17 [History Confirmed 07/17 Last Taken 07/17/18 07:00] Warfarin [Coumadin] 7.5 mg PO MOTUWETHFRSA 12/10/17 [History Confirmed 07/17/18 Last Taken 07/16/18 09:00] Ipratropium/Albuterol [Duoneb] 3 ml INHALATION BID 12/12/17 [History Confirmed 07/17/18 Last Taken 12/11/17] budesonide 0.5 mg/2 mL suspension for nebulization 0.5 mg INHALATION Q12H #270 ml 03/23/18 [Rx Confirmed 07/17/18 Last Taken 07/16/18 18:00] ipratropium-albuterol 0.5 mg-3 mg(2.5 mg base)/3 mL nebulization soln 3 ml INHALATION TID #270 ml 03/23/18 [Rx Confirmed 07/17/18 Last Taken 07/17/18 20:00 ] Calcium Carbonate [Super Calcium] 600 mg PO DAILY 07/18/18 [History Confirmed Last Taken Unknown] Magnesium 250 mg PO DAILY 07/18/18 [History Confirmed 07/18/18 Last Taken Unknown] Melatonin 3 mg PO HSP PRN 07/18/18 [History Confirmed 07/18/18 Last Taken Unknown] Ondansetron HCl [Zofran ODT] 4 mg SL Q8HP PRN 07/18/18 [History Confirmed Last Taken Unknown] Warfarin [Coumadin] 10 mg PO CHE 07/18/18 [History Confirmed 07/18/18 Last Taken Unknown] Medical - DS: Hosp Hospital course: Ms. Meier is a 78 year old F with multiple medical issues presents to the ER today with complaints of weakness/cough / nausea/diarrhea x 3 days. The patient notes her symptoms started 3 days ago, she had cough with yellow sputum. Cough was associated with shortness of breath worse with activity better with rest. She also had some wheezing for which she has been taking her nebulizer treatments. Patient had subjective sensation of chills but no fever. The patient also reports symptoms started with nausea no vomiting and a few episodes of diarrhea. Patient initially felt that the symptoms were related to a viral illness and they were resolved by themselves. However her symptoms progressed and she was too weak even to get out of chair and walk short distances in her house. She therefore decided to come to the emergency room for further evaluation. The patient denies any headache changes in vision difficulty in swallowing runny nose, denies any chest pain palpitations , has some abdominal soreness, no urinary complaints, no joint pains back pain skin rashes denies depression or anxiety. Denies any blood in the stools or black stools. The patient has a history of atrial fibrillation she is on Coumadin. The patient also has history of COPD and uses nebulizers at home In the emergency room on presentation patient was afebrile, hemodynamically stable. Saturating more than 90% on room air. Labs showed normal WBC count, hemoglobin of 12, INR 3.0, lactic acid of 0.6 and an unremarkable chemistry. Chest x-ray shows a right-sided infrahilar infiltrate. Although the ED provider did not mention about any wheezing on my exam I did notice the patient did have active wheezing. Given the patient's age multiple comorbidities pneumonia and significant weakness with ambulation. We are admitting the patient to the hospital for further management 07/18 Patient seen and examined, still has some cough, wanting cough medication otherwise was comfortably sitting in chair. She had breakfast without any issues. 07/19 pt seen examined, no acute overnight issues, tolerating po diet well, Blood culture positive for staph epidermis, likely contaminant, on vancomycin. Repeat culture neg Patient otherwise is doing well. 07/20 Follow-up cultures remain without growth, as do original cultures and remaining bottles of culture with staph epi (in 1 of 4 bottles). Patient feels well, anxious for discharge. Summary: -Community Acquired Pneumonia- IV ceftriaxone and azithromycin; will finish 5 days of azithromycin -Acute COPD exacerbation- improved; PO prednisone taper, home Duoneb, budesonide nebs -Nausea- Symptomatic management, able to tolerate po diet well -Dehydration-resolved -Gram positive Bactermia: in 1 bottle from a total of 3 sets of blood cultures; S. epidermidis identified, likely contaminant, no further Tx. -Atrial fibrillation- Rate controlled, on home warfarin -CAD/HTN/HLD- Stable, continue home medications. -Hypothyroidism- stable, continue home dose of levothyroxine. Discharge diagnosis: Right lower lobe community acquired pneumonia - Time Spent with Patient Total time spent providing and/or coordinating discharge services: Greater than 30 minutes Medical - DS: Exam - Constitutional Vitals: Vital Signs Temp Pulse Pulse Resp BP Pulse Ox 07/20/18 08:00 98.0 F 96 H 16 134/62 98 11/06/18 07:15 98 H 20 07/20/18 07:04 17 96 07/20/18 04:00 98.2 F 93 H 20 143/79 95 07/19/18 23:54 97.9 F 108 H 20 179/87 95 07/19/18 23:30 87 16 07/19/18 19:30 95 H 18 07/19/18 19:09 98.7 F 20 136/70 93 07/19/18 16:10 96 H 18 07/19/18 15:59 99 F 20 136/75 91 07/19/18 12:16 97 H 16 07/19/18 12:00 98.8 F 20 129/62 90 Intake and Output 07/19/18 07/20/18 07/20/18 21:59 05:59 13:59 Intake Total 900 / 900 250 / 250 Output Total 350 / 350 Balance 550 / 550 250 / 250 Intake: IV 250 / 250 Vancomycin 1,000 mg In Sodium 250 / 250 Chloride 0.9% 250 ml @ 250 mls/ hr IV DAILY [facility] Rx#:[id number] Oral 650 / 650 250 / 250 Output: Void Amount 350 / 350 Other: Urine Appearance Clear Urine Color Light Yessi Dark Yellow Urine Odor Normal Normal Stool Color Brown Stool Consistency Soft Loose Loose # Bowel Movements 1 Weight 171 lb Additional comments: General: Sitting up in chair, eager to be discharged Chest: Clear to auscultation bilaterally with good air movement, no wheezes, respirations unlabored Cardiovascular: Irregularly irregular with 2/6 precordial murmur Abdomen: Soft, nontender Neuro: Alert, oriented, hard of hearing, ambulating well in the room. Medical - DS: Data Labs on day of discharge: Labs from last 24 hours 07/20/18 07/20/18 07/20/18 08:00 04:11 04:11 WBC RBC Hgb Hct MCV MCH MCHC RDW Plt Count MPV Gran % Lymph % (Auto) [place] % (Auto) Eos % (Auto) Baso % (Auto) Gran # Lymph # (Auto) [place] # (Auto) Eos # (Auto) Baso # (Auto) PT 24.0 H INR 2.1 H Sodium 138 Potassium 3.9 Chloride 102 Carbon Dioxide 26 Anion Gap 10.0 BUN 15 Creatinine 0.8 GFR Calculation 70 Glucose 99 Uric Acid 3.6 Calcium 8.3 L Phosphorus 2.6 L Magnesium 2.0 Total Bilirubin 0.3 Direct Bilirubin < 0.2 GGT 13 AST 12 ALT 16 Alkaline Phosphatase 62 Lactate Dehydrogenase 176 Total Protein 5.3 L Albumin 3.2 Globulin 2.1 L Albumin/Globulin Ratio 1.5 Triglycerides 80 Vancomycin Trough 8.4 07/20/18 04:11 WBC 5.7 RBC 3.48 L Hgb 10.9 L Hct 32.6 L MCV 93.6 MCH 31.3 MCHC 33.5 RDW 15.5 H Plt Count 240 MPV 7.2 L Gran % 77.8 Lymph % (Auto) 13.2 L [place] % (Auto) 9.0 Eos % (Auto) 0 Baso % (Auto) 0 Gran # 4.4 Lymph # (Auto) 0.8 L [place] # (Auto) 0.5 Eos # (Auto) 0 Baso # (Auto) 0 PT INR Sodium Potassium Chloride Carbon Dioxide Anion Gap BUN Creatinine GFR Calculation Glucose Uric Acid Calcium Phosphorus Magnesium Total Bilirubin Direct Bilirubin GGT AST ALT Alkaline Phosphatase Lactate Dehydrogenase Total Protein Albumin Globulin Albumin/Globulin Ratio Triglycerides Vancomycin Trough Preliminary micro results at discharge 07/18/18 19:00 Blood Culture - Preliminary Blood 07/18/18 18:55 Blood Culture - Preliminary Blood 07/17/18 18:45 Blood Culture - Preliminary Blood 07/17/18 18:50 Blood Culture - Preliminary Blood Gram positive cocci - Imaging and Cardiology Chest x-ray Additional comments: IMPRESSION: Small right infrahilar infiltrate. Underlying COPD Mild stable cardiomegaly Medical - DS: A/P - Patient/Caregiver Discharge Instructions Activity: increase activity as tolerated Diet: Regular Diet - Follow up Plan Follow up with: Maritza Arredondo MD [Primary Care Provider] - Disposition: Home, Self-Care Prognosis: Good Rehab Potential: Good Overall status at discharge: patient is back to baseline
[2018-07-20] MEDS: VANCOMYCIN 1,000 MG in 0.9 % SODIUM CHLORIDE 250 ML IV SCH (09:49)
== END 2018-07-20 11:13 | disposition home or self-care (01) ==
LOC: ED 15:57 → ICU 20:39 → SUATTDRO 20:39 → ICU 20:45
PROVIDERS: ADMIT Internal Medicine; ATTEND Internal Medicine
CPT/HCPCS: 87149; 87632; 90686; 97161; 97167; 99223; 99231; J0696; J2405; J3370; J7030; J7050; J7120; J7620; J7620-GY; J7626; J7626-GY